=== PATIENT | male | born 1965 | race Caucasian/White ===

== ENCOUNTER 2021-03-10 13:01 | Emergency (ER) | payer OTHER ==
--- NOTE | 2021-03-10 13:48 | EDM.PDOC ---
ED HPI GENERAL MEDICAL PROBLEM - General Chief Complaint: Upper Extremity Injury/Pain Stated Complaint: VERY RED AND SORE BO AREA Time Seen by Provider: 03/10/21 13:48 Source of Information: Reports: Patient - History of Present Illness INITIAL COMMENTS - FREE TEXT/NARRATIVE: Bud is a 55 year old male whom presents to ER with abrupt onset or right elbow swelling, redness and warmth over the last 24 hours. Bud report feeling ill yesterday with chills, sweats and general fatigue which is worse today. Bud has been taking Ibuprofen 600mg with some improvement of pain but swelling became much worse today prompt visit before returning to the [facility]. Bud does not recall injury but does rest elbow when working on computer frequently. Onset: Other - Related Data Allergies Allergy/AdvReac Type Severity Reaction Status Date / Time No Known Allergies Allergy Verified 03/10/21 14:08 Home Meds: Home Meds cephALEXin [Keflex] 500 mg PO QID 10 Days #40 cap 03/10/21 [Rx] Review of Systems - Review of Systems Review Of Systems: Comprehensive ROS is negative, except as noted in HPI. ED EXAM, GENERAL - Physical Exam Exam: See Below Exam Limited By: No Limitations General Appearance: Alert, WD/WN, Mild Distress Eye Exam: Bilateral Eye: EOMI, PERRL Ears: Hearing Grossly Normal Nose: Normal Inspection, No Blood Throat/Mouth: Normal Inspection, No Airway Compromise Neck: Normal Inspection Respiratory/Chest: No Respiratory Distress, Lungs Clear, Normal Breath Sounds Cardiovascular: Normal Peripheral Pulses, Regular Rate, Rhythm Back Exam: Normal Inspection, Full Range of Motion Extremities: Arm Pain (significant swelling, warmth, induration and (bursitis) with scab form previous skin injury (entry wound) at site of olecranon bursa. ) Neurological: Alert, Oriented, CN II-XII Intact Psychiatric: Normal Affect, Normal Mood Skin Exam: Warm, Dry, Intact, Normal Color Course - Vital Signs Last Recorded V/S: Last Vital Signs Temp 36.6 C 03/10/21 14:13 Pulse 91 03/10/21 14:13 Resp 16 03/10/21 14:13 BP 142/74 H 03/10/21 14:13 Pulse Ox 98 03/10/21 14:13 - Orders/Labs/Meds Orders: Active Orders 24 hr Category Date Time Status Dressing Change [Wound Care] [RC] DAILY Care 03/10/21 14:08 Active cefTRIAXone [Rocephin] 2 gm Med 03/10/21 14:30 Active Lidocaine 1% [Xylocaine-MPF 1%] 4.2 ml IM ONETIME Medication Orders Ceftriaxone Sodium 2 gm/ (Lidocaine HCl 4.2 ml) 0 gm IM ONETIME ONE Stop: 03/10/21 14:31 Last Admin: 03/10/21 14:16 Dose: 2 inj Documented by: EVELIO Meds: Medications Generic Name Dose Route Start Last Admin Trade Name Freq PRN Reason Stop Dose Admin Ceftriaxone Sodium 2 gm/ 0 gm 03/10/21 14:30 03/10/21 14:16 Lidocaine HCl 4.2 ml IM 03/10/21 14:31 2 inj ONETIME ONE Administration Discontinued Medications Generic Name Dose Route Start Last Admin Trade Name Freq PRN Reason Stop Dose Admin Bacitracin 1 dose 03/10/21 14:09 03/10/21 14:23 Bacitracin Oint 1 Gm U/D Packet TOP 03/10/21 14:10 1 dose ONETIME ONE Administration Departure - Departure Time of Disposition: 14:29 Disposition: Home, Self-Care 01 Clinical Impression: Cellulitis, Bursitis, olecranon - Discharge Information Prescriptions: cephALEXin [Keflex] 500 mg PO QID 10 Days #40 cap Instructions: Cellulitis, Adult, Elbow Bursitis Rehab-SportsMed, Elbow Bursitis Referrals: PCP,None [Primary Care Provider] - Forms: ED Department Discharge Additional Instructions: 1. Rocephin 2GM IM given during ER visit for cellulitis due to open wound and bursitis. 2. Keflex 500mg TID x 10 days, take until gone. 3. Call Primary clinic on Thursday for recheck in 5 days to ensure improving or change in antibiotic recommend due to limited improvement. 4. Warm compress to area every 15-20 minutes 3-4 times per day to increased blood flow to the area. 5. Topical Antibiotic Bacitracin every am and pm if open wound present. 6. [place] wrap vs sling to the area per comfort as needed. Sepsis Event Note (ED) - Focused Exam Vital Signs: Vital Signs Temp Pulse Resp BP Pulse Ox 03/10/21 14:13 36.6 C 91 16 142/74 H 98 03/10/21 13:34 36.6 C 91 16 142/74 H 98 - My Orders Last 24 Hours: My Active Orders 03/10/21 14:08 Dressing Change [Wound Care] [RC] DAILY 03/10/21 14:30 cefTRIAXone [Rocephin] 2 gm Lidocaine 1% [Xylocaine-MPF 1%] 4.2 ml IM ONETIME - Assessment/Plan Last 24 Hours: My Active Orders 03/10/21 14:08 Dressing Change [Wound Care] [RC] DAILY 03/10/21 14:30 cefTRIAXone [Rocephin] 2 gm Lidocaine 1% [Xylocaine-MPF 1%] 4.2 ml IM ONETIME
[2021-03-10] MEDS ORDERED: cefTRIAXone 2 GM, Lidocaine 1% 4.2 ML IM ONE ×4 (13:57→14:30)
[2021-03-10] MEDS ORDERED: Bacitracin Oint 1 GM U/D Packet TOP ONE (14:09)
== END 2021-03-10 14:55 | disposition home or self-care (01) ==
LOC: JP.ED 13:01
DX: M71.121 Other infective bursitis, right elbow (principal); L03.113 Cellulitis of right upper limb
CPT/HCPCS: 96372; 99283; J0696